=== PATIENT | male | born 1980 | race Caucasian/White ===

== ENCOUNTER → 2023-05-20 16:25 | Outpatient (BNVA) | payer OTHER, SELFPAY | PROVIDERS: Visit Provider Emergency Medicine | DX: B34.9 Viral infection, unspecified (principal) | CPT/HCPCS: 87400; 87426 ==

== ENCOUNTER → 2023-06-22 16:20 | Outpatient (BNVA) | payer OTHER, SELFPAY | PROVIDERS: Visit Provider Nurse Practitioner | DX: R05.9 Cough, unspecified (principal) | CPT/HCPCS: 87400; 87426 ==

== ENCOUNTER 2023-08-23 19:13 | Emergency (ER) | payer SELFPAY ==
--- NOTE | 2023-08-23 19:15 | XRR_ITS ---
PROCEDURE INFORMATION: Exam: XR Left Foot Exam date and time: 08/23/2023 7:35 PM Age: 42 years old Clinical indication: Pain; Heel; Left; Additional info: Inj TECHNIQUE: Imaging protocol: Radiologic exam of the left foot. Views: 3 or more views. COMPARISON: No relevant prior studies available. FINDINGS: Bones/joints: Mild hallux valgus. Alignment is otherwise intact. Mild degenerative change of the 1st metatarsophalangeal joint. No evidence of acute fracture or dislocation. Incidental note made of plantar heel spur. Soft tissues: Normal. Other findings: Normal mineralization. XR/XR foot LT min 3V* [id number] IMPRESSION: 1. No evidence of acute fracture or dislocation. 2. Mild hallux valgus with associated mild degenerative changes of the 1st metatarsophalangeal joint. 3. Plantar heel spur.
[2023-08-23 19:20] VITALS: BP 152/94; PULSE 76; RESP 16; TEMP 36.5; O2SAT 97
[2023-08-23 19:29] VITALS: BP 156/88; PULSE 85; RESP 19; O2SAT 97
--- NOTE | 2023-08-23 20:08 | ED_ITS ---
Documented by User: KISHORE Garcia 08/23/23 20:13 HPI - Extremity Problem General: Chief complaint: Extremity Injury, Lower Stated complaint: Left foot pain Time Seen by Provider: 08/23/23 19:18 Source: patient Mode of arrival: ambulatory Limitations: no limitations History of Present Illness: Patient is a 42-year-old male complaining of left heel pain for the past 2 weeks. He does not report any inciting event, but does note that the same day he began having pain he did tripped over a tree root while mowing. No prior injuries or surgeries to that left foot. He states pain is specifically worsened with weightbearing and movement, relieved with rest. He has been taking naproxen for his pain, this has done little. Has not tried ice or any other [id number] treatments. Pain is still present at rest though is very minimal, but jumps to a sharp stabbing pain to the plantar aspect of his left heel with any walking. No history of diabetes or other pertinent past medical history. MD Complaint: extremity pain Onset (ago): week(s) Pain Consistency: constant Location: left Quality: stabbing and sharp Relieving factors: rest Exacerbating factors: weight bearing, walking and exertion Associated symptoms: Deny chest pain, fever(s) or rash Review of Systems General: Reports: 10 or more systems reviewed and unremarkable except in HPI and below Const: Denies: fever(s), chills or fatigue Eyes: Denies: change in vision ENMT: Denies: throat pain, ear or mastoid pain or nasal discharge Card: Denies: chest pain, palpitations, swelling of feet/ankles or lightheadedness Resp: Denies: dyspnea, productive cough or wheezing GI: Denies: abdominal pain, nausea, vomiting, diarrhea or constipation : Denies: flank pain, difficulty urinating, dysuria or urinary frequency Musc: Reports: extremity pain (Left foot); Denies: neck pain, back pain, extremity swelling, joint pain or joint swelling Skin/Breast: Denies: rash Neuro: Denies: headache(s), numbness in extremities or weakness in extremities Physical Exam Const: COMMON NORMALS: no acute distress, patient oriented x3 and no limitations GENERAL APPEARANCE: cooperative, comfortable and well developed ORIENTATION/CONSCIOUSNESS: Yes awake, Yes oriented to person, Yes oriented to place and Yes oriented to time HENMT: COMMON NORMALS: normocephalic, atraumatic and hearing grossly normal bilaterally HEAD & SCALP: normocephalic and atraumatic Eye: COMMON NORMALS: Equal, round and reactive pupils present, EOMs intact bilaterally and conjunctivae normal CONJUNCTIVA: Yes conjunctivae normal PUPIL: Yes Equal, round and reactive pupils present Neck/C-Spine: COMMON NORMALS: full ROM, supple and no JVD Resp: COMMON NORMALS: normal respiratory effort, No retractions, No use of accessory muscles and clear to auscultation bilaterally AUSCULTATION: clear to auscultation bilaterally Cardio: COMMON NORMALS: no JVD, regular rate, regular rhythm, No clicks present (Cardio), No murmurs present (Cardio) and No rub (Cardio) RATE: regular rate RHYTHM: regular rhythm Extremity: COMMON NORMALS: normal to inspection, full ROM, capillary refill normal, no joint enlargement and no pedal edema NARRATIVE EXTREMITY EXAM: Antalgic gait. Left foot and ankle nontender to palpation. Full range of motion. He does have some pain noted with dorsiflexion and plantarflexion of the left foot, worse with dorsiflexion. No obvious swelling or other signs of trauma. Neuro: COMMON NORMALS: patient oriented x3, moves all extremities, no focal motor deficits and no sensory deficits noted SENSORIUM/ORIENTATION: Yes oriented to person, Yes oriented to place and Yes oriented to time Psych: COMMON NORMALS: mental status grossly normal and Normal thought process present THOUGHT PROCESS: Normal thought process present Skin: COMMON NORMALS: no rashes or lesions noted GENERAL SKIN EXAM: no rashes or lesions noted Course Vital Signs: Vital signs: Vital Signs Temperature 97.7 F 08/23/23 19:20 Pulse Rate 85 08/23/23 19:29 Respiratory Rate 19 H 08/23/23 19:29 Blood Pressure 156/88 08/23/23 19:29 Pulse Oximetry 97 08/23/23 19:29 Oxygen Delivery Me thod Room Air 08/23/23 19:29 MDM - Extremity (Nontraumatic) Medical Decision Making Patient was seen for 2 weeks of left heel pain, has been constant. Vitals normal on arrival condition has been stable throughout ED course. Visual examination of the left foot unremarkable. X-ray showed evidence of a heel spur, consistent with a chronic plantar fasciitis which correlates with patient's physical exam and history. Instructed patient on multiple conser vative therapies such as heel cups, NSAIDs, rest, and ice. I did inform him to follow-up with primary care for any further evaluation and intervention such as possible injections or referral to orthopedics. Patient agrees with this plan and will be discharged home. All other questions and concerns addressed at this time. Lab Data Radiology Impressions Foot X-Ray 08/23/23 19:15 IMPRESSION: 1. No evidence of acute fracture or dislocation. 2. Mild hallux valgus with associated mild degenerative changes of the 1st metatarsophalangeal joint. 3. Plantar heel spur. XR interpretation done by ED provider, pending radiology final review Discharge Plan Discharge Patient Disposition: Home Clinical Impression: Plantar fasciitis Condition: Stable Prescriptions: No Action albuterol sulfate 90 mcg/actuation HFA aerosol inhaler 2 puff inhalation Q6H PRN fluticasone propionate 50 mcg/actuation spray,suspension 1 spray intranasal DAILY PRN (Reason: allergy symptoms) Qty: 16 3RF Rx Instructions: administer into each nostril promethazine-DM 6.25-15 mg/5 mL syrup 7.5 ml PO Q6H PRN (Reason: cough) Qty: 200 0RF oseltamivir [Tamiflu] 75 mg capsule 75 mg PO BID 5 Days Qty: 10 0RF Discharge Orders: Discharge ED (Routine); Ordered 08/23/23 Ordered By: Melvin Rubio Discharge Diet: Usual diet Discharge Activity: Limit activity as instructed Patient Instructions: Plantar Fasciitis (ED), Plantar Fasciitis Exercises (ED) Activity Restrictions/Additional Instructions: Plantar fasciitis exercises. Rest and ice as discussed. Cushioned heel cups. Follow-up with primary care for further evaluation. Continue taking naproxen for your pain. Return with any new or worsening. Stand Alone Forms: Work/School Release Coding Level of Care Code ED [employer] [facility] Documented by User: Trino Yee DO 08/23/23 22:07 HPI - Extremity Problem General: Chief complaint: Extremity Injury, Lower Stated complaint: Left foot pain Time Seen by Provider: 08/23/23 19:18 Course Vital Signs: Vital signs: Vital Signs Temperature 97.7 F 08/23/23 19:20 Pulse Rate 85 08/23/23 19:29 Respiratory Rate 19 H 08/23/23 19:29 Blood Pressure 156/88 08/23/23 19:29 Pulse Oximetry 97 08/23/23 19:29 Oxygen Delivery Me thod Room Air 08/23/23 19:29 MDM - Extremity (Nontraumatic) Medical Decision Making Patient was seen for 2 weeks of left heel pain, has been constant. Vitals normal on arrival condition has been stable throughout ED course. Visual examination of the left foot unremarkable. X-ray showed evidence of a heel spur, consistent with a chronic plantar fasciitis which correlates with patient's physical exam and history. Instructed patient on multiple conservative therapies such as heel cups, NSAIDs, rest, and ice. I did inform him to follow-up with primary care for any further evaluation and intervention such as possible injections or referral to orthopedics. Patient agrees with this plan and will be discharged home. All other questions and concerns addressed at this time. Chart reviewed and patient discussed with midlevel. Agree with assessment and plan. Lab Data Radiology Impressions Foot X-Ray 08/23/23 19:15 IMPRESSION: 1. No evidence of acute fracture or dislocation. 2. Mild hallux valgus with associated mild degenerative changes of the 1st metatarsophalangeal joint. 3. Plantar heel spur. Discharge Plan Discharge Patient Disposition: Home Clinical Impression: Plantar fasciitis Condition: Stable Prescriptions: No Action albuterol sulfate 90 mcg/actuation HFA aerosol inhaler 2 puff inhalation Q6H PRN fluticasone propionate 50 mcg/actuation spray,suspension 1 spray intranasal DAILY PRN (Reason: allergy symptoms) Qty: 16 3RF Rx Instructions: administer into each nostril promethazine-DM 6.25-15 mg/5 mL syrup 7.5 ml PO Q6H PRN (Reason: cough) Qty: 200 0RF oseltamivir [Tamiflu] 75 mg capsule 75 mg PO BID 5 Days Qty: 10 0RF Discharge Orders: Discharge ED (Routine); Ordered 08/23/23 Ordered By: Melvin Rubio Discharge Diet: Usual diet Discharge Activity: Limit activity as instructed Patient Instructions: Plantar Fasciitis (ED), Plantar Fasciitis Exercises (ED) Activity Restrictions/Additional Instructions: Plantar fasciitis exercises. Rest and ice as discussed. Cushioned heel cups. Follow-up with primary care for further evaluation. Continue taking naproxen for your pain. Return with any new or worsening. Stand Alone Forms: Work/School Release Coding Level of Care Code ED [employer] [facility] [employer] [place]
== END 2023-08-23 20:28 | disposition home or self-care (01) ==
PROVIDERS: Emergency Provider Physician Assistant
DX: M72.2 Plantar fascial fibromatosis (principal)
CPT/HCPCS: 73630; 99283